=== PATIENT | female | born 1990 | race African-American/Black ===

== ENCOUNTER 2018-10-21 12:28 | Emergency (ER) | payer OTHER, SELFPAY ==
[2018-10-21 12:32] VITALS: BP 133/88; PULSE 108; RESP 22; TEMP 39.4; O2SAT 100
[2018-10-21 12:45] VITALS: TEMP 39.4
[2018-10-21] MEDS: IBUPROFEN 400 MG TABLET 800 MG PO (12:45)
[2018-10-21] MEDS: ACETAMINOPHEN 325 MG TABLET 975 MG PO (12:45)
--- NOTE | 2018-10-21 13:19 | DI.RAD.S_ITS ---
PROCEDURE: XR CHEST 2V INDICATIONS: fever, right sided chest pain TECHNIQUE: 2 views of the chest were acquired. COMPARISON: None. FINDINGS: Surgical changes and devices: None. Lungs and pleura: Lungs are clear. No pleural effusions or pneumothorax. Mediastinum: Mediastinal contours are normal. Heart size is normal. Bones and chest wall: No suspicious bony abnormalities. Soft tissues appear unremarkable. IMPRESSION: No acute cardiopulmonary disease process. Dictated by: Ana Recinos MD, PhD on 10/21/2018 at 13:36 Approved by: Ana Recinos MD, PhD on 10/21/2018 at 13:37
[2018-10-21 13:50] VITALS: PULSE 115; RESP 18; TEMP 37.3; O2SAT 96
[2018-10-21 13:51] VITALS: TEMP 37.3
[2018-10-21] MEDS: predniSONE 20 MG TABLET 60 MG PO (14:17)
--- NOTE | 2018-10-21 14:17 | ED_ITS ---
HPI - URI/Sore Throat <CHERELLE Elliott - Last Filed: 10/21/18 20:00> General Chief Complaint: Upper Respiratory Symptoms Stated Complaint: Chest pain, sharp pain in right breast Time Seen by Provider: 10/21/18 13:55 Source: patient Mode of arrival: ambulatory Limitations: no limitations History of Present Illness HPI Narrative: Patient is a 27-year-old female with a history of asthma who presents by herself for chief complaint of fever, muscle aches and chills. She states she has a cough and that her ?hurts to breathe. She states she feels very tight upon breathing. She started feeling sick on Tuesday. She does work as a teacher and has been exposed to several cases of the flu recently. She complains of slight nausea on occasion, but has been taking food and fluids well. She states she feels like her asthma is worsening at this point in time. Of note she has been admitted for her asthma in the ICU, intubated before. She does complain of sore throat. She does take Sudafed every day, but has not taken anything for her flu-like symptoms over the past few days. Related Data Home Medications Medication Instructions Recorded Confirmed fluticasone propion-salmeterol 1 inh INHALATION BID 10/21/18 10/21/18 [Advair Diskus] loratadine [Claritin] 10 mg PO DAILY 10/21/18 10/21/18 pseudoephedrine HCl [Sudafed] 30 mg PO DAILY 10/21/18 10/21/18 tiotropium bromide [Spiriva with 1 cap INHALATION DAILY 10/21/18 10/21/18 HandiHaler] Previous Rx's Medication Instructions Recorded prednisone 50 mg PO DAILY #5 tab 10/21/18 Allergies Allergy/AdvReac Type Severity Reaction Status Date / Time No Known Drug Allergies Allergy Verified 10/21/18 12:37 Review of Systems <CHERELLE Elliott - Last Filed: 10/21/18 20:00> Review of Systems GENERAL: See HPI HEENT: Denies sinus pain, ear pain, sore throat, difficulty swallowing, dizziness. RESPIRATORY: See HPI CARDIOVASCULAR: Denies chest pain, palpitations, orthopnea, edema, GASTROINTESTINAL: Denies nausea, vomiting, abdominal pain, diarrhea, constipation, melena. : Denies dysuria, frequency, incontinence, hematuria, urinary retention. MUSCULOSKELETAL: denies weakness, joint pain, or bony pain SKIN: Denies rash, skin lesions, or other NEUROLOGIC: Denies weakness, headache, numbness, change in speech, confusion, seizures, incoordination. PSYCHIATRIC: No concerning psychosocial issues. 12 point review of systems is negative except for those stated above PFSH <MARTHA Elliott-VIJAY - Last Filed: 10/21/18 20:00> Medical History Asthma (Acute) Social History Smoking Status: Former smoker Social History Smoking Status: Former smoker Exam <CHERELLE Elliott - Last Filed: 10/21/18 20:00> Narrative Exam Narrative: GENERAL: This is a well-nourished, well-developed patient, sitting on stretcher HEAD: Atraumatic. Normocephalic. No temporal or scalp tenderness. EYES: Pupils equal round and reactive. Extraocular motions intact. No scleral icterus. No injection or drainage. ENT: Nose without bleeding, purulent drainage or septal hematoma. Throat without erythema, tonsillar hypertrophy or exudate. Uvula midline. Airway patent. NECK: Trachea midline. No JVD or lymphadenopathy. Supple, nontender, no meningeal signs. CARDIOVASCULAR: Slightly tachycardic rate and rhythm without murmurs, gallops, or rubs. RESPIRATORY: Clear to auscultation. Breath sounds equal bilaterally. No wheezes, rales, or rhonchi. Tight sounding lung sounds bilaterally. No increased respiratory effort. No accessory muscle use. Persistent cough during exam. GASTROINTESTINAL: Abdomen soft, non-tender, nondistended. No hepato- splenomegaly, or palpable masses. No guarding. Active bowel sounds all 4 quadrants. EXTREMITIES: No clubbing, cyanosis, or edema. No joint tenderness, effusion, or edema noted. BACK: Nontender without deformity or crepitance. No flank tenderness. NEURO: AOx3. SKIN: No rash or erythema. Initial Vital Signs Initial Vital Signs: Vital Signs Temperature 102.9 F H 10/21/18 12:32 Pulse Rate 108 H 10/21/18 12:32 Respiratory Rate 22 10/21/18 12:32 Blood Pressure 133/88 10/21/18 12:32 Pulse Oximetry 100 10/21/18 12:32 <Sofia Mann DO - Last Filed: 10/24/18 08:26> Initial Vital Signs Initial Vital Signs: Vital Signs Temperature 102.9 F H 10/21/18 12:32 Pulse Rate 108 H 10/21/18 12:32 Respiratory Rate 22 10/21/18 12:32 Blood Pressure 133/88 10/21/18 12:32 Pulse Oximetry 100 10/21/18 12:32 Course <YOSHI ElliottP-BC - Last Filed: 10/21/18 20:00> Course Narrative: I checked on the patient several times throughout her stay in the emergency department. Orders Ordered: Discontinued Medications Acetaminophen (Tylenol) 975 mg PO NOW ONE Stop: 10/21/18 12:41 Last Admin: 10/21/18 12:45 Dose: 975 mg Albuterol/Ipratropium (Duoneb) 3 ml INH NOW ONE Stop: 10/21/18 14:38 Last Admin: 10/21/18 14:37 Dose: 3 ml Ibuprofen (Advil) 800 mg PO NOW ONE Stop: 10/21/18 12:41 Last Admin: 10/21/18 12:45 Dose: 800 mg Prednisone (Deltasone) 60 mg PO NOW ONE Stop: 10/21/18 14:08 Last Admin: 10/21/18 14:17 Dose: 60 mg Vital Signs - 8 hr 10/21/18 12:32 10/21/18 12:45 10/21/18 13:50 Temperature 102.9 F H 102.9 F H 99.1 F Pulse Rate 108 H 115 H Respiratory Rate 22 18 Blood Pressure 133/88 Blood Pressure [Left Arm] Pulse Oximetry 100 96 10/21/18 13:51 10/21/18 14:38 10/21/18 15:53 Temperature 99.1 F 99.9 F H Pulse Rate 99 H 104 H Respiratory Rate 18 20 Blood Pressure Blood Pressure [Left Arm] 128/72 Pulse Oximetry 98 94 <Sofia Mann DO - Last Filed: 10/24/18 08:26> Orders Ordered: Discontinued Medications Acetaminophen (Tylenol) 975 mg PO NOW ONE Stop: 10/21/18 12:41 Last Admin: 10/21/18 12:45 Dose: 975 mg Albuterol/Ipratropium (Duoneb) 3 ml INH NOW ONE Stop: 10/21/18 14:38 Last Admin: 10/21/18 14:37 Dose: 3 ml Ibuprofen (Advil) 800 mg PO NOW ONE Stop: 10/21/18 12:41 Last Admin: 10/21/18 12:45 Dose: 800 mg Prednisone (Deltasone) 60 mg PO NOW ONE Stop: 10/21/18 14:08 Last Admin: 10/21/18 14:17 Dose: 60 mg Vital Signs - 8 hr 10/21/18 12:32 10/21/18 12:45 10/21/18 13:50 Temperature 102.9 F H 102.9 F H 99.1 F Pulse Rate 108 H 115 H Respiratory Rate 22 18 Blood Pressure 133/88 Blood Pressure [Left Arm] Pulse Oximetry 100 96 10/21/18 13:51 10/21/18 14:38 10/21/18 15:53 Temperature 99.1 F 99.9 F H Pulse Rate 99 H 104 H Respiratory Rate 18 20 Blood Pressure Blood Pressure [Left Arm] 128/72 Pulse Oximetry 98 94 MDM - URI/Sore Throat <CHERELLE Elliott - Last Filed: 10/21/18 20:00> Lab Data Lab Results 10/21/18 Range/Units 12:41 Influenza A & B (PCR) Positive, type a A (Negative) Imaging Data Chest x-ray: Radiologist's impression: [place] [address] XRay Report Signed Patient: Armida Krishna [facility]#: [id number] : 1990Acct:[id number] Age/Sex: 27 / FDate of Service: 10/21/18 Loc: ED Accession Number: [id number] Procedure: XR chest 2V Ordering Provider: Sofia Zhang PROCEDURE: XR CHEST 2V INDICATIONS: fever, right sided chest pain TECHNIQUE: 2 views of the chest were acquired. COMPARISON: None. FINDINGS: Surgical changes and devices: None. Lungs and pleura: Lungs are clear. No pleural effusions or pneumothorax. Mediastinum: Mediastinal contours are normal. Heart size is normal. Bones and chest wall: No suspicious bony abnormalities. Soft tissues appear unremarkable. IMPRESSION: No acute cardiopulmonary disease process. Dictated by: Ana Recinos MD, PhD on 10/21/2018 at 13:36 Approved by: Ana Recinos MD, PhD on 10/21/2018 at 13:37 [facility] Narrative Medical decision making narrative: The patient presents with a chief complaint of flu symptoms, URI symptoms and sore throat. She tested positive for the flu here. Given her history of severe asthma, obtained a chest x-ray, which showed no pneumonia. However given her tightness upon breathing, a respiratory therapist consult was obtained. She is given a nebulizer in the emergency department, which did not help much. She was given spacer teaching in the emergency department as well. She had no questions or concerns upon discharge. I discussed at length return precautions the emergency department including inability keep down fluids, severe shortness of breath or acute concerns. Patient ambulated steadily to check out. Disposition to home. Diagnosis influenza, asthma exacerbation. <DO Óscar Bhat Filed: 10/24/18 08:26> Lab Data Lab Results 10/21/18 Range/Units 12:41 Influenza A & B (PCR) Positive, type a A (Negative) Discharge Plan Departure Patient Disposition: Home Clinical Impression: Influenza, Asthma exacerbation Discharge Date/Time: 10/21/18 15:55 Interventions: ED Discharge Assessment Last Done: 10/21/18 15:54 Instructions: DI for Asthma -- Adult, DI for Influenza -- Adult Activity Restrictions/Additional Instructions: You tested positive for the flu today. I have given you several days off of work. I am also starting you on prednisone to help with your asthma exacerbation. Please follow up with your primary care provider in a few days for re-evaluation. Please rest and push fluids. Come back to emergency department for any severe shortness of breath inability keep down fluids or any acute concerns. Prescriptions: New prednisone 50 mg tablet 50 mg PO DAILY Qty: 5 RF: 0 No Action Advair Diskus 250-50 mcg/dose Blister With Device 1 inh INHALATION BID RF: 0 pseudoephedrine HCl [Sudafed] 30 mg Tablet 30 mg PO DAILY RF: 0 loratadine [Claritin] 10 mg Tablet 10 mg PO DAILY RF: 0 Spiriva with HandiHaler 18 mcg Capsule, W/Inhalation Device 1 cap INHALATION DAILY RF: 0 Referrals: [facility] [Outside] Stand Alone Forms: Work Release Note <DO Óscar Bhat Filed: 10/24/18 08:26> Cosign ED Attending Cosignature Attestation: I was immediately available in the department for consultation. This documentation has been reviewed and I agree with assessment and plan. Supervised by Sofia Mann DO
[2018-10-21] MEDS: ALBUTEROL/IPRATROPIUM 3 ML AMPUL INH (14:37)
[2018-10-21 14:38] VITALS: PULSE 99; RESP 18; O2SAT 98
[2018-10-21 15:53] VITALS: BP 128/72; PULSE 104; RESP 20; TEMP 37.7; O2SAT 94
== END 2018-10-21 15:55 | disposition home or self-care (01) ==
PROVIDERS: Emergency Medicine; Emergency Provider Nurse Practitioner Family
DX: J11.1 Influenza due to unidentified influenza virus with other respiratory manifestations (principal); J45.901 Unspecified asthma with (acute) exacerbation
CPT/HCPCS: 71046; 87400; 94640; 99282; 99283